=== PATIENT | male | born 1955 | race Caucasian/White ===

== ENCOUNTER 2021-11-16 14:33 | Emergency (ER) | payer MEDICAID ==
[~2021-11-16] VITALS: Ht 157.5 cm; Wt 77.0 kg
[2021-11-16 14:41] VITALS: BP 142/84
[2021-11-16 16:34] LABS: BASOPHILS % 0.4 % (0.0-2.0); HEMATOCRIT. 45.8 % (42.0-52.0); HEMOGLOBIN. 15.7 g/dL (14.0-18.0); LYMPHOCYTES % 23.1 % (20.0-50.0); MEAN CORPUSCULAR HEMOGLOBIN 31.9 pg (28.0-32.0); MEAN CORPUSCULAR VOLUME 93.1 fL (80.0-94.0); MEAN PLATELET VOLUME 8.6 fl (7.4-10.4); MONOCYTES % 8.5 % (2.0-8.0); PLATELET 232 x1000/uL (130-400); RED BLOOD CELL COUNT 4.91 mill/uL (4.7-6.1)
[2021-11-16 16:45] LABS: CHLORIDE 98 mEq/L (98-107)
[2021-11-16 16:50] LABS: ETHANOL BLOOD < 10 mg/dL
== END 2021-11-16 17:56 | disposition home or self-care (01) ==
LOC: ER 14:48
DX: F41.9 Anxiety disorder, unspecified (principal); E87.1 Hypo-osmolality and hyponatremia; I10 Essential (primary) hypertension
CPT/HCPCS: 36415; 71045; 80053; 80320; 84484; 85025; 99285; G0480